=== PATIENT | female | born 1960 | race Caucasian/White ===

== ENCOUNTER → 2018-10-29 | Outpatient (CLI) | payer BC | END | disposition home or self-care (01) | LOC: CFH 07:11 | PROVIDERS: ATTEND Obstetrics & Gynecology Gynecology | DX: Z12.31 Encounter for screening mammogram for malignant neoplasm of breast (principal); D25.9 Leiomyoma of uterus, unspecified | CPT/HCPCS: 76830; 77063; 77067 ==

== ENCOUNTER → 2020-05-14 | Outpatient (CLI) | payer BC | END | disposition home or self-care (01) | LOC: RAD 16:38 | PROVIDERS: ATTEND Physician Assistant | DX: N20.0 Calculus of kidney (principal); R16.1 Splenomegaly, not elsewhere classified; K57.30 Diverticulosis of large intestine without perforation or abscess without bleeding | CPT/HCPCS: 74176 ==